=== PATIENT | male | born 1975 | race Caucasian/White ===

== ENCOUNTER 2017-12-11 11:13 | Emergency (ER) | payer OTHER ==
[2017-12-11 11:42] VITALS: BP 145/100
--- NOTE | 2017-12-11 11:52 | UC ---
UC General HPI - HPI Summary HPI Summary: PT SEEN IN ER ON 11/27/17 AND DX WITH INFECTED KIDNEY STONE. D/C ON FLOMAX AND BACTRIM. GOT A RASH 11/30/[address] ABERNATHY STOPPED THE BACTRIM AND HAD PT TAKE BENADRYL. THE RASH IMPROVED BUT IS NOW WORSENING AND PT NOTES GENERALIZED MM ACHES. NO ITCH, SOB, PAIN, N/D/D OR DYSURIA. - History of Current Complaint Chief Complaint: UCRash Stated Complaint: RASH Time Seen by Provider: 12/11/17 11:45 Hx Obtained From: Patient Onset/Duration: Gradual Onset Pain Intensity: 0 Aggravating: NOTHING Alleviating: NOTHING Associated Signs & Symptoms: Negative: Dysuria, Fever - Allergy/Home Medications Allergies/Adverse Reactions: Allergies Allergy/AdvReac Type Severity Reaction Status Date / Time TO BE DETERMINED Allergy See Comment Uncoded 12/11/17 11:55 Home Medications: Home Medications Acetaminophen [Tylenol Extra Strength] 500 mg PO ONCE 12/11/17 [History Confirmed 12/11/17] Tamsulosin CAP* [Flomax CAP*] 0.4 mg PO DAILY 12/11/17 [History Confirmed ] diPHENhydraMINE PO* [Benadryl PO 50 MG CAP*] 50 mg PO BID 12/11/17 [History Confirmed 12/11/17] PMH/Surg Hx/FS Hx/Imm Hx GI/ History: Kidney Stones - 11/27/17 WITH INFECTION - Surgical History Surgical History: None - Family History Known Family History: Positive: None - Social History Occupation: Employed Full-time Lives: With Family Alcohol Use: Daily Alcohol Amount: 1-2 DAILY EXCEPT FOR TUESDAYS Substance Use Type: None Smoking Status (MU): Light Every Day Tobacco Smoker Type: Smokeless Tobacco - Immunization History Vaccination Up to Date: Yes Review of Systems Constitutional: Negative Skin: Rash Eyes: Negative ENT: Negative Respiratory: Negative Cardiovascular: Negative Gastrointestinal: Negative Genitourinary: Negative Motor: Negative Neurovascular: Negative Musculoskeletal: Myalgia Neurological: Negative Psychological: Negative Is Patient Immunocompromised?: No All Other Systems Reviewed And Are Negative: Yes Physical Exam Triage Information Reviewed: Yes Appearance: Well-Appearing Vital Signs: Initial Vital Signs Temp 100.0 F 12/11/17 11:35 Pulse 86 12/11/17 11:35 Resp 15 12/11/17 11:35 BP 145/100 12/11/17 11:35 Pulse Ox 100 12/11/17 11:35 Vital Signs Reviewed: Yes Eyes: Positive: Conjunctiva Clear ENT: Positive: Pharynx normal, TMs normal. Negative: Nasal congestion, Nasal drainage Neck: Positive: Supple, Nontender, No Lymphadenopathy Respiratory: Positive: Lungs clear, Normal breath sounds Cardiovascular: Positive: RRR, No Murmur Abdomen Description: Positive: Nontender, No Organomegaly, Soft. Negative: CVA Tenderness (R), CVA Tenderness (L), Distended, Guarding Bowel Sounds: Positive: Present Musculoskeletal: Positive: ROM Intact Neurological: Positive: Alert Psychological: Positive: Age Appropriate Behavior Skin Exam: Normal Skin: Positive: rashes - Multiple areas of red raised wheels that look c/w hives and severo. Diagnostics - Laboratory Diagnostic Studies Completed/Ordered: u/a= 2+ blood and 2+ protein Course/Dx - Course Course Of Treatment: REPORT CALLED TO THE [facility] ER. REPORT GIVEN TO DR NICHOLS INCLUDING ER VISIT FOR INFECTED STONE, BACTRIM X 3 DAYS THEN D/C DUE TO RASH, NOW WORSENING RASH, CURRENT FEVER, MYALGIAS AND HEMATURIA PLUS ELEVATED BP. PT RETURNING FOR ADDITIONAL EVALUATION. - Differential Dx - Multi-Symptom Provider Diagnoses: RASH, MYALGIAS, HEMATURIA, TEMP 100 Discharge - Sign-Out/Discharge Documenting (check all that apply): Patient Departure - Discharge Plan Condition: Stable Disposition: TRANS HIGHER LVL OF CARE FAC Referrals: Christina Bajwa [Primary Care Provider] - Additional Instructions: LEAVE HERE AND GO DIRECTLY TO THE [facility] ER DISCUSSED - Billing Disposition and Condition Condition: STABLE Disposition: Trans Higher Lvl of Care Fac
== END 2017-12-11 12:23 | disposition short-term general hospital (02) ==
LOC: UCCORT 11:13
DX: R21 Rash and other nonspecific skin eruption (principal); M79.1 Myalgia; R31.9 Hematuria, unspecified; R50.9 Fever, unspecified; Z87.442 Personal history of urinary calculi; F17.210 Nicotine dependence, cigarettes, uncomplicated
CPT/HCPCS: 81003; 99202; G0463